=== PATIENT | male | born 1980 | race Caucasian/White ===

== ENCOUNTER 2022-12-12 21:25 | Emergency (ER) | payer OTHER, SELFPAY | END 2022-12-12 22:21 | disposition home or self-care (01) | LOC: NAV ERS 21:25 | DX: S50.11XA Contusion of right forearm, initial encounter (principal); I10 Essential (primary) hypertension; W55.22XA Struck by cow, initial encounter; Y93.89 Activity, other specified ==

== ENCOUNTER 2024-09-17 20:44 | Emergency (ER) | payer OTHER ==
[2024-09-17] MEDS ORDERED: Lidocaine 1% (PF) 30 ML VIAL ONE (21:24)
== END 2024-09-17 21:55 | disposition home or self-care (01) ==
LOC: NAV ERS 20:44
DX: L05.01 Pilonidal cyst with abscess (principal)
CPT/HCPCS: 10080; 87070; 87205